=== PATIENT | male | born 1980 | race Caucasian/White ===

== ENCOUNTER 2019-09-24 13:14 | Inpatient (IN) | payer SELFPAY ==
[~2019-09-24] VITALS: Ht 167.6 cm; Wt 63.1 kg
[~2019-09-24 13:14] MED LIST: ANUSOL-HC25 MG R; CELEXA20 MG PO; HYDROCODONE BIT1 T11 PO; KEFLEX500 MG PO; MOTRIN800 MG PO; NAPROSYN500 MG PO; NKHM; NORCO 325 MG-51 TAB PO; PENICILLIN VK500 MG PO; PROCTOCORT1% RC; PROCTOFOAM-HC 11 FOA RC; PROTONIX40 MG PO; PROZAC20 MG PO; Peridex 473 ML473 ML PO; SEROQUEL300 MG PO; VICODIN 5/500 505 MG PO; VOLTAREN50 M1 PO
[2019-09-24 13:26] VITALS: BP 137/67
[2019-09-24 14:27] LABS: BASO % 0.3 % (0.0-1.0); EOS # 0.1 10*3/uL (0.0-0.4); EOS % 0.9 % (1.0-4.0); HEMATOCRIT 39.9 % (42.0-52.0); LYMPH # 1.4 10*3/uL (1.3-4.4); LYMPH % 10.9 % (27.0-41.0); MEAN CELL VOLUME 91.3 fl (80.0-94.0); MEAN CORPUSCULAR HGB 30.2 pg (27.0-31.0); MEAN CORPUSCULAR HGB CONC 33.1 g/dl (33.0-37.0); MEAN PLATELET VOLUME 10.1 fl (9.6-12.3); MONO # 0.8 10*3/uL (0.1-1.0); MONO % 6.3 % (3.0-9.0); NEUT # 10.5 10*3/uL (2.3-7.9); NEUT % 81.3 % (47.0-73.0); PLATELET COUNT AUTOMATED 243 10*3/uL (130-400); RED BLOOD COUNT 4.37 10*6/uL (4.50-5.90); RED CELL DISTRI WIDTH 14.4 % (0-14.5); WHITE BLOOD COUNT 12.9 10*3/uL (4.8-10.8)
[2019-09-24 14:42] LABS: ALBUMIN 3.5 gm/dl (3.1-4.5); ALKALINE PHOSPHATASE 153 U/L (45-117); BUN 13 mg/dl (7-24); CHLORIDE 107 mmol/L (98-107); CREATININE 1.16 mg/dL (0.70-1.30); POTASSIUM 3.6 mmol/L (3.5-5.1); SGOT/AST 28 IU/L (3-35); SGPT/ALT 52 U/L (12-78); SODIUM 139 mmol/L (136-145); TOTAL PROTEIN 7.4 gm/dL (6.4-8.2)
[2019-09-24 15:38] VITALS: BP 128/62
[2019-09-24 16:00] VITALS: BP 112/73
[2019-09-24 20:00] VITALS: BP 116/71
[2019-09-25] VITALS: BP 100/60
[2019-09-25 08:00] VITALS: BP 99/55
[2019-09-25 12:00] VITALS: BP 108/67
[2019-09-25 16:00] VITALS: BP 107/79
[2019-09-25 20:00] VITALS: BP 129/77
[2019-09-26] VITALS: BP 102/61
[2019-09-26 06:14] LABS: BASO % 0.3 % (0.0-1.0); EOS # 0.3 10*3/uL (0.0-0.4); EOS % 3.4 % (1.0-4.0); HEMATOCRIT 39.5 % (42.0-52.0); LYMPH # 1.7 10*3/uL (1.3-4.4); LYMPH % 19.3 % (27.0-41.0); MEAN CELL VOLUME 91.4 fl (80.0-94.0); MEAN CORPUSCULAR HGB 29.9 pg (27.0-31.0); MEAN CORPUSCULAR HGB CONC 32.7 g/dl (33.0-37.0); MEAN PLATELET VOLUME 10.3 fl (9.6-12.3); MONO # 0.6 10*3/uL (0.1-1.0); MONO % 6.9 % (3.0-9.0); NEUT # 6.2 10*3/uL (2.3-7.9); NEUT % 69.8 % (47.0-73.0); PLATELET COUNT AUTOMATED 267 10*3/uL (130-400); RED BLOOD COUNT 4.32 10*6/uL (4.50-5.90); RED CELL DISTRI WIDTH 14.5 % (0-14.5); WHITE BLOOD COUNT 8.9 10*3/uL (4.8-10.8)
[2019-09-26 06:39] LABS: BUN 12 mg/dl (7-24); CHLORIDE 107 mmol/L (98-107); CREATININE 1.26 mg/dL (0.70-1.30); POTASSIUM 3.6 mmol/L (3.5-5.1); SODIUM 137 mmol/L (136-145)
[2019-09-26 08:00] VITALS: BP 128/78
[2019-09-26] MEDS ORDERED: SEPTDS PO (08:34)
[2019-09-26] MEDS ORDERED: CEPHALEXIN500 M1 PO (08:34)
== END 2019-09-26 09:15 | disposition home or self-care (01) | DRG 872 ==
LOC: ED 13:14 → EDHOLD 14:28 → 4E 14:58
PROVIDERS: Internal Medicine; Nurse Practitioner Family; ADMIT Internal Medicine
DX: A41.9 Sepsis, unspecified organism (principal); L02.214 Cutaneous abscess of groin; L03.314 Cellulitis of groin; F17.210 Nicotine dependence, cigarettes, uncomplicated; D64.9 Anemia, unspecified; R73.9 Hyperglycemia, unspecified; Z71.6 Tobacco abuse counseling; Z87.442 Personal history of urinary calculi; Z82.5 Family history of asthma and other chronic lower respiratory diseases; Z82.0 Family history of epilepsy and other diseases of the nervous system; Z80.8 Family history of malignant neoplasm of other organs or systems

== ENCOUNTER 2021-01-01 16:23 | Emergency (ER) | payer SELFPAY ==
[~2021-01-01] VITALS: Ht 167.6 cm; Wt 72.6 kg
[~2021-01-01 16:23] MED LIST changes: +CEPHALEXIN500 M1 PO; +SEPTDS PO
[2021-01-01] MEDS ORDERED: SEPTDS PO (20:02)
== END 2021-01-01 20:21 | disposition home or self-care (01) ==
LOC: ED 16:23
DX: L03.115 Cellulitis of right lower limb (principal); F17.200 Nicotine dependence, unspecified, uncomplicated; Z79.2 Long term (current) use of antibiotics

== ENCOUNTER 2022-05-04 12:34 | Emergency (ER) | payer SELFPAY ==
[~2022-05-04] VITALS: Ht 167.6 cm; Wt 72.6 kg
[2022-05-04] MEDS ORDERED: PENICILLIN-VK500 MG PO (12:57)
== END 2022-05-04 13:14 | disposition home or self-care (01) ==
LOC: ED 12:34
DX: K02.9 Dental caries, unspecified (principal); Z98.890 Other specified postprocedural states; Z72.0 Tobacco use

== ENCOUNTER 2025-04-17 17:53 | Emergency (ER) | payer SELFPAY ==
[~2025-04-17] VITALS: Ht 167.6 cm; Wt 68.0 kg
[~2025-04-17 17:53] MED LIST changes: +PENICILLIN-VK500 MG PO
[2025-04-17] MEDS ORDERED: Acetaminophen/Hydrocodone 5 MG/325 MG TABLET PO ONE (18:10)
[2025-04-17] MEDS ORDERED: Amoxicillin/Clavulanate Pota 875 MG TAB PO ONE (18:10)
[2025-04-17] MEDS ORDERED: AMOX-CLAV 875-1 EACH PO (18:11)
[2025-04-17] MEDS ORDERED: MELOXICAM15 MG PO (18:11)
== END 2025-04-17 18:30 | disposition home or self-care (01) ==
LOC: ED 17:53
DX: K04.7 Periapical abscess without sinus (principal); F32.A Depression, unspecified